=== PATIENT | female | born 1990 | race Caucasian/White ===

== ENCOUNTER 2017-05-21 12:59 | Emergency (ER) | payer OTHER, SELFPAY ==
[2017-05-21 13:26] VITALS: BP 124/68; PULSE 74; RESP 18; TEMP 36.8; O2SAT 98; BMI 29.2
--- NOTE | 2017-05-21 14:01 | HMH.EDUTC ---
[facility] [place] Disposition Clinical Impression: Dysfunction of left eustachian tube Disposition: Home, Self-Care Condition on Discharge: Good Instructions: DI for Eustachian Tube Dysfunction-Adult Additional Instructions: * No sign of bacterial infection. Likely viral or due to allergies. * Monitor Temp. Fever unexpected so if occurs, follow up. * Encourage fluids, water, gatorade, powerade, pedialyte if infant/toddler/child * sleep elevated * humidifier/vaporizer * Start Claritin 10mg daily and flonase 2 sprays each nostril daily. Can take several days before you notice improvement. Wait one week and if symptoms controlled, back down to 1 spray flonase each nostril and the claritin. If symptoms return, go back to 2 sprays but if symptoms remain controlled, give it a week and try stopping flonase. If symptoms return, start back at 1 spray each nostril with claritin but if symptoms remain controlled, continue just claritin. Wait another week and if still controlled, try stopping claritin. If symptoms return, restart claritin but if remain controlled, no medication. Prescriptions: Fluticasone Propionate [Flonase 50mcg nasal spray 16gm] 2 spr NS DAILY #1 bottle Referrals: Sammy Stokes MD [Staff Physician] - (For any new, worsening or persisting symptoms) Time of Disposition: 13:58 Medical Decision Making - Primo Inquiry Pt receiving controlled substance: No Vital Signs: 05/21/17 13:26 Temperature 98.2 F Temperature Source Temporal Artery Scan Pulse Rate [Brachial] 74 Respiratory Rate 18 Blood Pressure [Right Arm] 124/68 Blood Pressure Mean [Right Arm] 86 Blood Pressure Position [Right Arm] Sitting 02 Sat by Pulse Oximetry 98 [facility] [place] HPI - General Stated complaint: ear ache Time Seen by Provider: 05/21/17 13:50 Mode of Arrival: Ambulatory Source of Information: Patient Limitations: No Limitations Description of Symptoms (Recalled from Triage Doc. by RN): LEFT EAR PAIN SINCE YESTERDAY, HAS NOT TAKEN MEDS FOR PAIN HEENT Symptoms (Recalled from RN notes): Yes Resp Symptoms (Recalled from RN notes): No Skin Symptoms (Recalled from RN notes): No MS Symptoms (Recalled from RN notes): No Functional Status (Recalled from RN notes): NA - History of Present Illness Provider Complaint: c/o left ear pain starting yesterday. Worse at night. Associated w/ popping, cracking, pressure that is worse with chewing or yawning. No fever. Hasn't taken or tried anything. - Related Data Home Medications Medication Instructions Recorded Confirmed Cholecalciferol (Vitamin D3) 5,000 unit PO WEEKLY 05/21/17 05/21/17 [Vitamin D3] Cyanocobalamin (Vitamin B-12) 50,000 iunits IM MONTHLY 05/21/17 05/21/17 [Vitamin B-12] Ethinyl Estradiol/Drospirenone 1 tab PO DAILY 05/21/17 05/21/17 [Ocella 3 mg-0.03 mg Tablet] Previous Rx's Medication Instructions Recorded Fluticasone Propionate [Flonase 2 spr NS DAILY #1 bottle 05/21/17 50mcg nasal spray 16gm] Allergies Allergy/AdvReac Type Severity Reaction Status Date / Time morphine [MORPHINE] Allergy Mild Unverified 02/18/17 14:16 - Worker's Comp Is this a Worker's Comp case?: No [facility] History I have reviewed the patient's past medical history: Yes Other Medical History: Reports: Other (Vit D Def) Laterality Cases: Bilateral: Tonsillectomy Other Surgeries: Yes: Other (cholecystectomy) - Social History Alcohol Intake: never - Psychiatric History Expresses thoughts of harming self/others: None Suicide Plan Description: No Plan ROS Obtained: Yes Systems reviewed as appropriate & no additional complaints - Constitutional Constitutional: Denies body ache, Denies chills, Denies fatigue, Denies fever(s) - Eyes Eyes: Denies eye discharge, Denies itchy eyes - ENT Ears, Nose, Mouth, and Throat: Reports as per HPI, Denies ear discharge, Denies nasal congestion, Denies nasal discharge, Denies sore throat - Cardiovascular Cardiovascular: Denies chest pain, Denie
--- NOTE | 2017-05-21 14:04 | ED_ITS ---
[facility] [place]ression: Dysfunction of left eustachian tube Disposition: Home, Self-Care Condition on Discharge: Good Instructions: DI for Eustachian Tube Dysfunction-Adult Additional Instructions: * No sign of bacterial infection. Likely viral or due to allergies. * Monitor Temp. Fever unexpected so if occurs, follow up. * Encourage fluids, water, gatorade, powerade, pedialyte if infant/toddler/ child * sleep elevated * humidifier/vaporizer * Start Claritin 10mg daily and flonase 2 sprays each nostril daily. Can take several days before you notice improvement. Wait one week and if symptoms controlled, back down to 1 spray flonase each nostril and the claritin. If symptoms return, go back to 2 sprays but if symptoms remain controlled, give it a week and try stopping flonase. If symptoms return, start back at 1 spray each nostril with claritin but if symptoms remain controlled, continue just claritin. Wait another week and if still controlled, try stopping claritin. If symptoms return, restart claritin but if remain controlled, no medication. Prescriptions: Fluticasone Propionate [Flonase 50mcg nasal spray 16gm] 2 spr NS DAILY #1 bottle Referrals: Sammy Stokes MD [Staff Physician] - (For any new, worsening or persisting symptoms) Time of Disposition: 13:58 Medical Decision Making - Primo Inquiry Pt receiving controlled substance: No Vital Signs: 05/21/17 13:26 Temperature 98.2 F Temperature Source Temporal Artery Scan Pulse Rate [Brachial] 74 Respiratory Rate 18 Blood Pressure [Right Arm] 124/68 Blood Pressure Mean [Right Arm] 86 Blood Pressure Position [Right Arm] Sitting 02 Sat by Pulse Oximetry 98 [facility] [place] - General Stated complaint: ear ache Time Seen by Provider: 05/21/17 13:50 Mode of Arrival: Ambulatory Source of Information: Patient Limitations: No Limitations Description of Symptoms (Recalled from Triage Doc. by RN): LEFT EAR PAIN SINCE YESTERDAY, HAS NOT TAKEN MEDS FOR PAIN HEENT Symptoms (Recalled from RN notes): Yes Resp Symptoms (Recalled from RN notes): No Skin Symptoms (Recalled from RN notes): No MS Symptoms (Recalled from RN notes): No Functional Status (Recalled from RN notes): NA - History of Present Illness Provider Complaint: c/o left ear pain starting yesterday. Worse at night. Associated w/ popping, cracking, pressure that is worse with chewing or yawning. No fever. Hasn't taken or tried anything. - Related Data Home Medications Medication Instructions Recorded Confirmed Cholecalciferol (Vitamin D3) 5,000 unit PO WEEKLY 05/21/17 05/21/17 [Vitamin D3] Cyanocobalamin (Vitamin B-12) 50,000 iunits IM MONTHLY 05/21/17 05/21/17 [Vitamin B-12] Ethinyl Estradiol/Drospirenone 1 tab PO DAILY 05/21/17 05/21/17 [Ocella 3 mg-0.03 mg Tablet] Previous Rx's Medication Instructions Recorded Fluticasone Propionate [Flonase 2 spr NS DAILY #1 bottle 05/21/17 50mcg nasal spray 16gm] Allergies Allergy/AdvReac Type Severity Reaction Status Date / Time morphine [MORPHINE] Allergy Mild Unverified 02/18/17 14:16 - Worker's Comp Is this a Worker's Comp case?: No [facility] History I have reviewed the patient's past medical history: Yes Other Medical History: Reports: Other (Vit D Def) Laterality Cases: Bilateral: Tonsillectomy Other Surgeries: Yes: Other (cholecystec
[2017-05-21 14:05] VITALS: BP 124/68; PULSE 74; RESP 18; TEMP 36.8; O2SAT 98
== END 2017-05-21 13:58 | disposition home or self-care (01) ==
PROVIDERS: Emergency Provider Nurse Practitioner Family
DX: H69.82 Other specified disorders of Eustachian tube, left ear (principal); Z88.6 Allergy status to analgesic agent; Z90.49 Acquired absence of other specified parts of digestive tract
CPT/HCPCS: 99201